=== PATIENT | female | born 1990 | race Caucasian/White ===

== ENCOUNTER 2018-03-28 18:56 | Emergency (ER) | payer MEDICAID, MEDICARE ==
[2018-03-28 19:59] VITALS: BP 126/70
[2018-03-28] MEDS ORDERED: Amoxicillin 500 MG Cap PO ONE (21:35)
[2018-03-28] MEDS ORDERED: Codeine/Promethazine 10-6.25 MG/5 ML Syrup 5 ML UD Cup PO ONE (21:35)
--- NOTE | 2018-03-28 21:40 | EDM.PDOC ---
ED HPI GENERAL MEDICAL PROBLEM - General Chief Complaint: ENT Problem Stated Complaint: [id number] STREP Time Seen by Provider: 03/28/18 21:35 Source of Information: Reports: Patient History Limitations: Reports: No Limitations - History of Present Illness INITIAL COMMENTS - FREE TEXT/NARRATIVE: sick with sore throat & cough can't sleep or swallow past few days. 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: Musculoskeletal History: Reports: None Neurological History: Reports: Migraines Psychiatric History: Reports: Bipolar Endocrine/Metabolic History: Reports: None Hematologic History: Reports: None Immunologic History: Reports: None Oncologic (Cancer) History: Reports: None Dermatologic History: Reports: None - Infectious Disease History Infectious Disease History: Reports: Chicken Pox, Hepatitis C - Past Surgical History Head Surgeries/Procedures: Reports: None Social & Family History - Family History Family Medical History: Noncontributory - Tobacco Use Smoking Status *Q: Current Every Day Smoker Years of Tobacco use: 14 Packs/Tins Daily: 0.5 - Caffeine Use Caffeine Use: Reports: Soda - Recreational Drug Use Recreational Drug Use: No ED ROS ENT - Review of Systems Review Of Systems: ROS reveals no pertinent complaints other than HPI. ED EXAM, ENT - Physical Exam Exam: See Below Exam Limited By: No Limitations General Appearance: Alert, WD/WN, Mild Distress, Other (discomfort) Ears: Hearing Grossly Normal Mouth/Throat: Pharyngeal Erythema, Tonsillar Erythema, Tonsillar Swelling Head: Atraumatic Neck: Non-Tender, Full Range of Motion Respiratory/Chest: No Respiratory Distress, No Accessory Muscle Use, Rhonchi. No: Decreased Breath Sounds, Accessory Muscle Use Cardiovascular: Regular Rate, Rhythm GI/Abdominal: Soft, Non-Tender Neurological: Alert, Oriented, Normal Cognition, Normal Gait, No Motor/Sensory Deficits Psychiatric: Tearful Skin: Warm, Dry, Normal Color Lymphatic: No Adenopathy Course - Vital Signs Last Recorded V/S: Last Vital Signs Temp 37.1 C 03/28/18 19:57 Pulse 97 03/28/18 19:57 Resp 20 03/28/18 19:57 BP 126/70 03/28/18 19:57 Pulse Ox 98 03/28/18 19:57 - Orders/Labs/Meds Orders: Active Orders 24 hr Category Date Time Status CULTURE STREP A CONFIRMATION [RM] Stat Lab 03/28/18 19:53 Results STREP SCRN A RAPID W CULT CONF [RM] Stat Lab 03/28/18 19:53 Results Amoxicillin [Amoxil] Med 03/28/18 21:35 Once 500 mg PO ONETIME ONE Codeine/Promethazine [Phenergan with Codeine] Med 03/28/18 21:35 Once 5 ml PO ONETIME ONE - Re-Assessments/Exams Free Text/Narrative Re-Assessment/Exam: 03/28/18 21:39 results discussed with pt. Departure - Departure Time of Disposition: 21:39 Disposition: Home, Self-Care 01 Condition: Good Clinical Impression: Tonsillitis, Bronchitis - Discharge Information Instructions: Tonsillitis, [id number] Referrals: Onesimo Luu MD [Primary Care Provider] - Additional Instructions: 1) rest 2) sleep as much as possible 3) don't sleep flat 4) drink lots of liquids 5) follow up at clinic rx given; amox 250mg tid x 30 phenergan codeine syrup 5ml qid prn - My Orders Last 24 Hours: My Active Orders 03/28/18 19:53 CULTURE STREP A CONFIRMATION [RM] Stat STREP SCRN A RAPID W CULT CONF [RM] Stat 03/28/18 21:35 Amoxicillin [Amoxil] 500 mg PO ONETIME ONE Codeine/Promethazine [Phenergan with Codeine] 5 ml PO ONETIME ONE - Assessment/Plan Last 24 Hours: My Active Orders 03/28/18 19:53 CULTURE STREP A CONFIRMATION [RM] Stat STREP SCRN A RAPID W CULT CONF [RM] Stat 03/28/18 21:35 Amoxicillin [Amoxil] 500 mg PO ONETIME ONE Codeine/Promethazine [Phenergan with Codeine] 5 ml PO ONETIME ONE
== END 2018-03-28 21:47 | disposition home or self-care (01) ==
LOC: DL.ED 18:56
DX: J03.90 Acute tonsillitis, unspecified (principal); J40 Bronchitis, not specified as acute or chronic; F17.210 Nicotine dependence, cigarettes, uncomplicated
CPT/HCPCS: 71045; 87081; 87430; 99283; A9270